=== PATIENT | female | born 1995 | race Caucasian/White ===

== ENCOUNTER 2019-08-30 06:08 | Inpatient (IN) | payer BC ==
[2019-08-30] MEDS ORDERED: PENICILLIN 5 MU in NA CHLORIDE 0.9% 100 ML IV ONE (06:37)
[2019-08-30] MEDS ORDERED: BUTORPHANOL 1 MG/ML INJ IV PRN (06:37)
[2019-08-30] MEDS ORDERED: Ringers Lactate 1,000 ML IV PRN (06:37)
[2019-08-30] MEDS ORDERED: PROMETHAZINE INJ 25 MG/ML AMP IV PRN (06:37)
[2019-08-30] MEDS ORDERED: OXYTOCIN/LR 20 UNIT/1,000 ML BAG IV SCH ×2 (07:00→11:00)
[2019-08-30] MEDS ORDERED: Ringers Lactate 1,000 ML IV SCH (07:00)
[2019-08-30 07:02] LABS: Absolute Lymphocytes (CBC) 1.7 K/uL (0.7-4.9); Basophils % 0.3 % (0-1.3); Hematocrit 35.6 % (36.0-45.0); Lymphocytes % 20.2 % (15.3-44.8); MPV 9.7 fL (7.6-11.3); RBC Red Blood Cell Count 4.17 M/uL (3.86-4.86)
[2019-08-30 07:03] LABS: Urine Appearance CLEAR; Urine Bilirubin NEGATIVE (NEG); Urine Blood NEGATIVE (NEG); Urine Color YELLOW; Urine Glucose NEGATIVE (NEG); Urine Protein NEGATIVE (NEG); Urine Specific Gravity 1.025 (1.005-1.030); Urine pH 6.5 (5.0-7.0)
[2019-08-30] MEDS ORDERED: FENTANYL/BUPIVACAINE/NS/PF 200 MCG/100 ML BAG EP PRN (07:12)
[2019-08-30] MEDS ORDERED: BUPIVACA 0.25%/EPI 0.0005%/PF 30 ML VIAL IV PRN (07:12)
[2019-08-30] MEDS ORDERED: FENTANYL CITR 100 MCG/2 ML IV ONE (07:12)
[2019-08-30 07:35] LABS: Urine Microscopic Reflex ORDER UMIC
[2019-08-30 07:54] LABS: Urine Bacteria <20 /HPF (<20); Urine Culture Reflex Order NOT NEEDED; Urine RBC NONE SEEN /HPF (NONE SEEN)
--- NOTE | 2019-08-30 08:01 | PREOPHP ---
Date of Admission: 08/30/2019 History Of Present Illness: Mrs. Gan is a 23-year-old female, 4, para 3-0-0-3, now at 39+ weeks gestation. She has been seen during this since approximately 30 weeks' gestation without significant complications other than Rh negative blood type, anemia and now possibly + strep carriage. She will be admitted for induction of labor. Past Medical History: Please see record. Family History: Please see record. No recent cough or cold. No recent vomiting. She has been little nauseated over the last 24 hours. She denies any breast lumps. She denies any bowel or bladder issues. Infant's activity has been slightly reduced. She will do kick count today. If there are very questions, she will report to Labor and Delivery for NST. Physical Examination: General: Reveals female in no apparent distress. Neck: Supple without adenopathy or thyromegaly. Lungs: Clear. Cardiac: Regular rate and rhythm without murmurs. Breasts: Not examined. Abdomen: Estimated weight of approximately 7 pounds. Pelvic: Cervix noted to be 1+ cm, 30% effaced vtx between minus one and minus two. Impression: Term . Plan: Patient will be admitted for induction of labor. MG/MADELEINE Voice ID: [id number] MTDD
[2019-08-30] MEDS ORDERED: PENICILLIN 2.5 MU in NA CHLORIDE 0.9% 100 ML IV SCH (09:00)
[2019-08-30] MEDS ORDERED: METOCLOPRAMIDE 10 MG/2mL INJ ONE (09:06)
[2019-08-30] MEDS ORDERED: NA CIT/CITRIC AC 30 ML ORAL UDC ONE (09:07)
[2019-08-30] MEDS ORDERED: CARBOPROST TROME 250 MCG/ML IM ONE (09:07)
[2019-08-30] MEDS ORDERED: FAMOTIDINE 20 MG/2 ML VIAL IV ONE ×2 (09:07)
[2019-08-30] MEDS ORDERED: METHYLERGONOVINE 0.2MG/ML AMP IM ONE (09:08)
[2019-08-30] MEDS ORDERED: CEFAZOLIN/SWI 2gm 2 GM/20 ML SYR ONE (09:09)
[2019-08-30] MEDS ORDERED: MORPHINE SULFATE/PF 1 MG/ML (10 ML AMP) ONE (09:11)
[2019-08-30] MEDS ORDERED: OXYTOCIN 10 UNIT/ML ML IV ONE ×2 (09:11→09:43)
[2019-08-30] MEDS ORDERED: LIDOCAINE 1% MPF 5 ML VIAL ONE (09:11)
[2019-08-30] MEDS ORDERED: BUPIVACAINE 0.75% (PF) 2 ML SP ONE (09:11)
[2019-08-30] MEDS ORDERED: METHYLERGONOVINE 0.2MG/ML AMP IM PRN (10:05)
[2019-08-30] MEDS ORDERED: METHYLERGONOVINE 0.2 MG TAB PO PRN (10:05)
[2019-08-30] MEDS ORDERED: CARBOPROST TROME 250 MCG/ML IM PRN (10:05)
[2019-08-30] MEDS ORDERED: ONDANSETRON 4 MG (ODT) TAB PO PRN (10:05)
[2019-08-30] MEDS ORDERED: KETOROLAC 30 MG/ML INJ IV PRN (10:07)
--- NOTE | 2019-08-30 12:06 | P.BOP ---
Preoperative diagnosis: 39 wk , NRFHT's Postoperative diagnosis: same, viable female infant Primary procedure: Landscape Painter: Radha Galdamez Estimated blood loss: 500ml Anesthesia: Spinal Complications: None Transferred to: Other ([id number]) Condition: Good
[2019-08-30] MEDS ORDERED: Ringers Lactate 2,000 ML IV ONE (14:47)
[2019-08-30] MEDS ORDERED: Rho(D) IG (HUMAN) 300 MCG SYR IM ONE (14:50)
[2019-08-30] MEDS ORDERED: OXYTOCIN/LR 20 UNIT/1,000 ML BAG IV ONE (22:28)
--- NOTE | 2019-08-30 23:32 | OP ---
Surgeon: Diallo Fuller MD Cnc Wood Lathe Operator: Dr. Jeff. Anesthesiologist: Dr. Rabia CRNA. Indications: Ms. Gan is a 23-year-old female 4, para 3-0-0-3 at apparently 39+ weeks gestation. She is admitted for elective induction of labor. After placement of scalp electro de, she had initial heart rate acceleration and then a large variable type of deceleration lasting a couple of minutes with heart rates down into the upper 40s. Reexamination showed no evidence of prol apse cord. The vertex was well applied to the cervix as it was at the time of placement of sca lp electrode. Heart rate recovered, however, subsequent to this over the next hour, she developed wh at appeared to be recurrent latest type of decelerations with tachycardia and reduced variabili ty. Because of that, patient was taken for stat section. Preoperative Diagnosis: 39+ week , nonreassuring heart rate. Procedure: Spinal block anesthesia, primary section, delivery of viable female . Postoperative Diagnosis: 39+ week , nonreassuring heart rate. Description Of Procedure: After satisfactory level of spinal block anesthesia was obtained, patient was prepped and draped in the usual fashion for abdominal surgery. A Pfannenstiel skin incision was made and carried down to the fascia. Fascia incised with a combination of sharp and blunt dissection . This was from the underlying rectus muscles. These were divided in the midline. The pe ritoneum identified and incised. Bladder flap incised and developed, a low-transverse uterine incisi on was made. A 6 pound 10 ounce female infant, 9 and 9 was delivered. Infant was vigorous at . Cord was clamped, cut, and the placed in a warmer. Cord blood obtained. Placenta was manually removed. The uterus was exteriorized. The cervix was dilated from above with ring clamp w hich was passed from the operative field. The uterine incision was closed in 2 layers of 0 Vicryl in a running nonlocking fashion with the second layer used to imbricate the first. Vesicouterine perit oneum reapproximated with a running suture of 3-0 Vicryl. The colon, gutters were cleaned of amnioti c fluid, debris, and blood clot. The rectus muscles were approximated in midline with simple sutures of 0 Vicryl. Fascia was closed with running suture of #1 Vicryl from either margin to the middle. Skin closed with subcutaneous simple sutures of 3-0 Vicryl, subdermal suture of 3-0 Vicryl, and subcu ticular suture of 4-0 Monocryl. Patient was taken to recovery room in satisfactory condition with th e Waddell catheter in place. Quantitative Blood Loss: 209 mL. She received 2 g of Ancef for antibiotic prophylaxis, had SCDs in place when taken to recovery room w ith sponge and needle counts correct x2. MG/MODL Voice ID: [id number] Report ID: [id number]
[2019-08-31 08:34] LABS: Basophils % 0.2 % (0-1.3); Hematocrit 29.6 % (36.0-45.0); Lymphocytes % 8.1 % (15.3-44.8); MPV 9.9 fL (7.6-11.3); RBC Red Blood Cell Count 3.48 M/uL (3.86-4.86)
[2019-08-31 11:34] LABS: Blood Morphology Comment NOT SEEN (NOT SEEN); Platelet Estimate ADEQ
[2019-08-31] MEDS ORDERED: KETOROLAC 30 MG/ML INJ IV PRN (16:09)
[2019-08-31] MEDS ORDERED: CARBOPROST TROME 250 MCG/ML IM PRN (16:09)
[2019-08-31] MEDS ORDERED: ONDANSETRON 4 MG (ODT) TAB PO PRN (16:10)
[2019-08-31] MEDS ORDERED: METHYLERGONOVINE 0.2 MG TAB PO PRN (16:10)
[2019-08-31] MEDS ORDERED: METHYLERGONOVINE 0.2MG/ML AMP IM PRN (16:10)
[2019-08-31] MEDS ORDERED: IBUPROFEN 600 MG TAB PO PRN (16:12)
[2019-08-31] MEDS ORDERED: OXYTOCIN/LR 20 UNIT/1,000 ML BAG IV SCH (17:00)
[2019-09-01 05:42] LABS: RPR (Rapid Plasma Reagin) NON-REACT (NON-REACT)
[2019-09-01 08:57] VITALS: BP 124/71; TEMP 97.8
--- NOTE | 2019-09-02 02:11 | DS ---
Date of Discharge: 09/01/2019 History: A 23-year-old 4, para 3, underwent primary section for nonreassuring heart tones. Postoperatively, has done quite well. Afebrile, ambulating, voiding. Lochia is nat l. No post spinal block problems. She has had her Tdap shot during the . She is Rh negati ve and has received RhoGAM. She will be dismissed this morning, to call Dr. Fuller's office this morning or Wednesday. She has a followup appointment already scheduled. She has a prescription for tra madol, although she has taken nothing stronger than Motrin at this point. She has no significant pro blems. She knows to continue her vitamins and increase vitamin C intake. She has given the number to Labor and Delivery, so if she has any problems over the weekend she can call, appear for a dvice. Final Diagnoses: Term intrauterine . Primary section for nonreassuring heart tone s. Spinal block anesthesia. RhoGAM administered. GRZEGORZ/MADELEINE Voice ID: [id number] Report ID: [id number]
[2019-09-02 05:42] LABS: HBsAG Nonreactive (Nonreactive)
== END 2019-09-01 09:20 | disposition home or self-care (01) | DRG 788 ==
LOC: 2ND-WC 06:08 → UNDOADMIN 06:08
PROVIDERS: ADMIT Specialist; ATTEND Specialist
PROC: 3E0234Z Introduction of Serum, Toxoid and Vaccine into Muscle, Percutaneous Approach (ICD-10-PCS; 2019-08-30)
PROC: 3E033VJ Introduction of Other Hormone into Peripheral Vein, Percutaneous Approach (ICD-10-PCS; 2019-08-30)
PROC: 10H073Z Insertion of Monitoring Electrode into Products of Conception, Via Natural or Artificial Opening (ICD-10-PCS; 2019-08-30)
PROC: 10D00Z1 Extraction of Products of Conception, Low, Open Approach (ICD-10-PCS; principal; 2019-08-30 09:30)
DX: O76 Abnormality in fetal heart rate and rhythm complicating labor and delivery (principal); O99.824 Streptococcus B carrier state complicating childbirth; Z3A.39 39 weeks gestation of pregnancy; Z37.0 Single live birth
CPT/HCPCS: 36415; 81003; 81015; 85025; 85461; 86592; 86850; 86870; 86900; 86901; 87340; 88307; J0690; J2210; J2590; J2765; J2790; J7120

== ENCOUNTER 2019-10-19 19:46 | Emergency (ER) | payer BC ==
[2019-10-19] MEDS ORDERED: KETOROLAC 30 MG/ML INJ ONE (20:44)
[2019-10-19] MEDS ORDERED: NA CHLORIDE 0.9% 1,000 ML ONE (20:44)
[2019-10-19 20:46] LABS: Absolute Lymphocytes (CBC) 0.7 K/uL (0.7-4.9); Basophils % 0.6 % (0-1.3); Lymphocytes % 17.7 % (15.3-44.8); MPV 9.1 fL (7.6-11.3); RBC Red Blood Cell Count 4.55 M/uL (3.86-4.86)
[2019-10-19 21:02] LABS: Magnesium 1.8 mg/dL (1.8-2.4); Potassium 3.7 mmol/L (3.5-5.1)
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
[2019-10-19 22:43] VITALS: TEMP 99.3; O2SAT 100
[2019-10-19 22:48] VITALS: BP 114/81
--- NOTE | 2019-10-23 15:41 | EKG ---
Test Date: 2019-10-19 Test Time: 21:05:16 Netsuite Developer: TENZIN MEASUREMENT RESULTS: Intervals: Rate: 93 NC: 152 QRSD: 86 QT: 344 QTc: 427 [place]: P: 34 NC: 152 QRS: 23 T: 35 INTERPRETIVE STATEMENTS: Normal sinus rhythm Normal ECG No previous ECG available for comparison Electronically Signed On 10-23-19 15:40:24 BUSSER by Jez Brock
== END 2019-10-19 22:06 | disposition home or self-care (01) ==
LOC: ER 19:46
DX: E86.0 Dehydration (principal); G43.019 Migraine without aura, intractable, without status migrainosus
CPT/HCPCS: 96361; 93005; 87070; 85025; 80048; 36415; 83735; 87081; 87804 ×2; 96374; 99284; J7030